=== PATIENT | male | born 1970 | race Caucasian/White ===

== ENCOUNTER 2018-12-06 19:18 | Emergency (ER) | payer OTHER ==
[~2018-12-06] VITALS: Ht 172.7 cm; Wt 65.8 kg
[2018-12-06 19:29] VITALS: BP 151/76
[2018-12-06] MEDS ORDERED: IBUPROFEN 800800 M1 PO (19:43)
[2018-12-06] MEDS ORDERED: AMOXIL 875 MG875 M1 PO (19:43)
== END 2018-12-06 19:52 | disposition home or self-care (01) ==
LOC: M.ERS 19:18
DX: K04.7 Periapical abscess without sinus (principal)

== ENCOUNTER 2019-04-07 22:56 | Emergency (ER) | payer OTHER ==
[~2019-04-07] VITALS: Ht 172.7 cm; Wt 65.8 kg
[~2019-04-07 22:56] MED LIST: AMOXIL 875 MG875 M1 PO; IBUPROFEN 800800 M1 PO
[2019-04-07 22:57] VITALS: BP 118/62
[2019-04-07] MEDS ORDERED: FLEXERIL PO (23:12)
[2019-04-07] MEDS ORDERED: NORCO 5-325 TA1 EAC1 PO (23:12)
== END 2019-04-07 23:21 | disposition home or self-care (01) ==
LOC: M.ERS 22:56
DX: M54.5 Low back pain (principal); F17.200 Nicotine dependence, unspecified, uncomplicated